=== PATIENT | male | born 1960 | race Caucasian/White ===

== ENCOUNTER → 2023-06-04 06:22 | Day surgery (SDC) | payer BC, SELFPAY | LOC: GI 06:22 | PROVIDERS: ATTENDING PHYSICIAN Specialist | DX: Z12.11 Encounter for screening for malignant neoplasm of colon (principal); D12.2 Benign neoplasm of ascending colon; D12.3 Benign neoplasm of transverse colon; K57.30 Diverticulosis of large intestine without perforation or abscess without bleeding; K56.2 Volvulus; Z86.010 Personal history of colon polyps | CPT/HCPCS: 45385; 88305 ==

== ENCOUNTER 2023-09-09 06:58 | Emergency (ER) | payer BC, SELFPAY ==
[2023-09-09 06:59] VITALS: BP 145/75
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
== END 2023-09-09 09:30 | disposition home or self-care (01) ==
LOC: EMR 06:58
PROVIDERS: EMERGENCY PHYSICIAN Emergency Medicine; FAMILY PHYSICIAN Family Medicine
DX: S76.811A Strain of other specified muscles, fascia and tendons at thigh level, right thigh, initial encounter (principal); S70.11XA Contusion of right thigh, initial encounter; R25.2 Cramp and spasm; M79.651 Pain in right thigh; M79.89 Other specified soft tissue disorders; X58.XXXA Exposure to other specified factors, initial encounter; Y93.17 Activity, water skiing and wake boarding; Z88.0 Allergy status to penicillin
CPT/HCPCS: 99284; 73552; 93971

== ENCOUNTER → 2024-11-04 16:58 | Outpatient (REF) | payer SELFPAY | LOC: RAD 16:58 | PROVIDERS: ATTENDING PHYSICIAN Family Medicine | DX: E78.2 Mixed hyperlipidemia (principal) | CPT/HCPCS: 75571 ==